=== PATIENT | female | born 1980 | race Caucasian/White ===

== ENCOUNTER 2018-06-26 06:31 | Emergency (ER) | payer OTHER ==
[2018-06-26 06:47] VITALS: BP 115/74
[2018-06-26 07:05] LABS: BILIRUBIN,URINE NEGATIVE (NEGATIVE); GLUCOSE, URINE (UA) NEGATIVE (NEGATIVE); KETONES,URINE (UA) NEGATIVE (NEGATIVE); LEUKOCYTE ESTERASE, URINE NEGATIVE (NEGATIVE); NITRITE,URINE NEGATIVE (NEGATIVE); OCCULT BLOOD,URINE SMALL (NEGATIVE); PROTEIN,URINE NEGATIVE (NEGATIVE); UROBILINOGEN,URINE 0.2 (NORMAL) E.U./dL (NORMAL)
[2018-06-26 07:13] LABS: CLARITY,URINE CLEAR (CLEAR); HCG UR QUAL NEGATIVE
[2018-06-26 07:24] LABS: BACTERIA,URINE Rare /HPF (None Seen); RBC,URINE 0-5 /HPF (0-5); SQUAMOUS EPITHELIAL CELL,UR FEW Squamous (<= Few)
[2018-06-26] MEDS ORDERED: LIDOCAINE VISCOUS 2% 15 ML UDC MM STA (07:26)
--- NOTE | 2018-06-26 07:41 | ED Physician Documentation ---
History of Present Illness - Stated complaint Stated Complaint: FEM - Chief complaint Chief Complaint: General - Additonal information Additional information: hx from pt 37 female to ED with abut 5 days of intense vaginal burning and discomfot no vag dc + bleeding on menses but sx started prior freq urination but not dysuria no abd pain no fever saw PMD, had a reportedly neg UA, unknown if GC chlamydia sent as well, rx bactrim X 3 days, no pelvic exam sx persist Review of Systems Constitutional: denies: Fever Cardiac: denies: Chest pain / pressure Respiratory: denies: Dyspnea GI: denies: Abdominal Pain : reports: LMP (now). denies: Discharge Endocrine: denies: Easy bruising / bleeding Immunocompromised: denies: Immunocompromised PD PAST MEDICAL HISTORY - Present Medications Home Medications: Ambulatory Orders Medication Instructions Recorded Confirmed Loratadine [Claritin] 10 mg PO 06/26/18 metroNIDAZOLE VAGINAL GEL 1 applic VG BID 5 Days #1 tube 06/26/18 [Metrogel] - Allergies Allergies/Adverse Reactions: Allergies Allergy/AdvReac Type Severity Reaction Status Date / Time Penicillins AdvReac Unknown Verified 06/26/18 06:47 PD ED PE NORMAL - Vitals Vital signs reviewed: Yes - General General: Alert and oriented X 3 - Cardiac Cardiac: RRR - Respiratory Respiratory: No respiratory distress - Abdomen Abdomen: Soft, Non tender - Female Female : 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 (Jasmyn), Other (no external lesions to suggest HSV, mild erythema, no sattelite lesions, no dc, no CMT, small blood c/w menses, no FB seen or palpated, cultures CAMERON wet prep swabs taken, applied topical lido for sx control) Results - Vitals Vitals: Vital Signs - 24 hr 06/26/18 06:41 Temperature 36.5 C Heart Rate 86 Respiratory 16 Rate Blood Pressure 115/74 O2 Saturation 99 Oxygen O2 Source Room air - Labs Labs: Microbiology 06/26/18 07:40 CAMERON Preparation - Final Other - Vaginal 06/26/18 07:40 Wet Prep - Final Genital - Vaginal Laboratory Tests 06/26/18 06/26/18 06:54 06:55 POC Whole Bld Glucose 91 Urine Color YELLOW Urine Clarity CLEAR Urine pH 6.0 Ur Specific [place] 1.010 Urine Protein NEGATIVE Urine Glucose (UA) NEGATIVE Urine Ketones NEGATIVE Urine Occult Blood SMALL H Urine Nitrite NEGATIVE Urine Bilirubin NEGATIVE Urine Urobilinogen 0.2 (NORMAL) Ur Leukocyte Esterase NEGATIVE Urine RBC 0-5 Urine WBC 0-3 Ur Squamous Epith Cells FEW Squamous Urine Bacteria Rare Ur Microscopic Review INDICATED Urine Culture Comments NOT INDICATED Urine HCG, Qual NEGATIVE PD MEDICAL DECISION MAKING - ED course ED course: + clue cells, < 20% but pt with sx will tx with metro gel Departure - Departure Disposition: 01 Home, Self Care Clinical Impression: Vaginitis Qualifiers: Chronicity: acute Qualified Code(s): N76.0 - Acute vaginitis Condition: Good Instructions: ED Vaginosis Bacterial Follow-Up: ZAHRAA LARKIN [Primary Care Provider] - Prescriptions: metroNIDAZOLE VAGINAL GEL [Metrogel] 1 applic VG BID 5 Days #1 tube Comments: The exam does not suggest herpes The test for a yeast infection was negative. The test for trichomonas was negative. The test for bacterial vagnosis was weakly positive - so I have prescribed medication for you. The other cultures are still pending and will take three days to be resulted
== END 2018-06-26 08:35 | disposition home or self-care (01) ==
LOC: ED 06:31
DX: N76.0 Acute vaginitis (principal)
CPT/HCPCS: 81001; 81003; 81025; 87086; 87210; 87220; 87491; 87591; 99283

== ENCOUNTER 2018-10-10 18:38 | Outpatient (CLI) | payer BC ==
--- NOTE | 2018-10-11 05:00 | XRAY Report ---
Reason: C SPINE PAIN Procedure Date: 10/10/2018 Accession Number: [id number] / [id number] Procedure: XR - Cervical Spine 2 View CPT Code: FULL RESULT: EXAM: CERVICAL SPINE RADIOGRAPHY EXAM DATE: 10/10/2018 06:49 PM. CLINICAL HISTORY: C SPINE PAIN. COMPARISONS: None. TECHNIQUE: 3 views. FINDINGS: Alignment: Reversal of lordosis. Bones: The cervical vertebral bodies and posterior elements are visualized from the skull base through C7-T1. No fractures or bone lesions. Disks: Disk heights are maintained. Facets: Facet joints are intact. Soft Tissues: Normal. No prevertebral soft tissue swelling. The visualized lung apices are clear. IMPRESSION: 1. Reversal of lordosis. 2. No other significant abnormality seen. RADIA
== END 2018-10-10 18:39 | disposition home or self-care (01) ==
LOC: DI 18:38
PROVIDERS: ATTEND Specialist
DX: M54.2 Cervicalgia (principal)
CPT/HCPCS: 72040

== ENCOUNTER 2023-12-04 09:26 | Emergency (ER) | payer BC ==
[2023-12-04] MEDS: SODIUM CHLORIDE 0.9% 1,000 ML IV STA (10:33)
[2023-12-04] MEDS: LORazepam 2 MG/ML VIAL IVP STA (10:33)
[2023-12-04 10:39] LABS: BASOPHILS % (AUTO) 0.4 %; EOSINOPHILS % (AUTO) 0.4 %; HCT - HEMATOCRIT 41.4 % (37.0-47.0); HGB - HEMOGLOBIN 14.1 g/dL (12.0-16.0); LYMPHOCYTES # (AUTO) 1.2 10^3/uL (1.5-3.5); LYMPHOCYTES % (AUTO) 23.5 %; MEAN CORPUSCULAR HEMOGLOBIN 28.7 pg (27.0-31.0); MEAN CORPUSCULAR HGB CONC 34.1 g/dL (32.0-36.0); MEAN CORPUSCULAR VOLUME 84.3 fL (81.0-99.0); MEAN PLATELET VOLUME 9.1 fL (7.9-10.8); MONOCYTES # (AUTO) 0.4 10^3/uL (0.0-1.0); NEUTROPHILS # (AUTO) 3.4 10^3/uL (1.5-6.6); NEUTROPHILS % (AUTO) 68.5 %; PLT - PLATELET COUNT 254 10^3/uL (130-450); RED BLOOD COUNT 4.91 10^6/uL (4.20-5.40); RED CELL DISTRIBUTION WIDTH 12.1 % (12.0-15.0)
[2023-12-04 10:46] VITALS: O2SAT 100
[2023-12-04 10:46] LABS: BILIRUBIN,URINE NEGATIVE (NEGATIVE); GLUCOSE, URINE (UA) NEGATIVE (NEGATIVE); KETONES,URINE (UA) 40 mg/dL (NEGATIVE); LEUKOCYTE ESTERASE, URINE NEGATIVE (NEGATIVE); NITRITE,URINE NEGATIVE (NEGATIVE); OCCULT BLOOD,URINE NEGATIVE (NEGATIVE); PH,URINE 6.5 PH (5.0-7.5); PROTEIN,URINE NEGATIVE (NEGATIVE); UROBILINOGEN,URINE 0.2 (NORMAL) E.U./dL (NORMAL)
[2023-12-04 10:48] LABS: CLARITY,URINE CLEAR (CLEAR); HCG UR QUAL NEGATIVE
[2023-12-04 11:00] LABS: ALBUMIN/GLOBULIN RATIO 2.2 (1.0-2.2); BILIRUBIN,TOTAL 0.7 mg/dL (0.2-1.0); CREATININE 0.7 mg/dL (0.6-1.3); POTASSIUM 3.5 mmol/L (3.5-4.5); TOTAL PROTEIN 7.3 g/dL (6.4-8.9)
--- NOTE | 2023-12-04 11:14 | ED Physician Documentation ---
History of Present Illness - Stated complaint Stated Complaint: HIGH BP,ANXIETY - Chief complaint Chief Complaint: General - History obtained from History obtained from: Patient - Additonal information Additional information: 43-year-old female presents for general feeling of unwell, elevated blood pressure. Patient reports very bad anxiety and has recently started on low-dose Prozac. She states that for the last several weeks she has felt generalized abdominal pain with nausea, worsening anxiety. Today patient felt worse and never and took her blood pressure. She states that her blood pressure was elevated at work and so she decided to present for evaluation to make sure that everything was okay. Review of Systems Constitutional: denies: Fever, Chills Cardiac: denies: Chest pain / pressure, Palpitations Respiratory: denies: Dyspnea, Cough, Wheezing GI: reports: Abdominal Pain, Nausea. denies: Vomiting, Constipation, Diarrhea : denies: Dysuria, Frequency, Hesitancy Musculoskeletal: denies: Neck pain, Back pain, Extremity pain Psychiatric: reports: Anxiety. denies: Depressed, Suicidal, Hallucinations, Delusions PD PAST MEDICAL HISTORY - Past Medical History Past Medical History: Yes Psych: Anxiety - Past Surgical History Past Surgical History: Yes General: Appendectomy - Present Medications Home Medications: Ambulatory Orders Medication Instructions Recorded Confirmed ALPRAZolam [Alprazolam] 0.5 mg PO Q6HR PRN 12/04/23 12/04/23 PARoxetine [Paxil] 10 mg PO DAILY 12/04/23 12/04/23 - Allergies Allergies/Adverse Reactions: Allergies Allergy/AdvReac Type Severity Reaction Status Date / Time acetaminophen [From Vicodin] AdvReac Emesis Verified 12/04/23 09:37 hydrocodone [From Vicodin] AdvReac Emesis Verified 12/04/23 09:37 oxycodone [From Percocet] AdvReac Emesis Verified 12/04/23 09:38 Penicillins AdvReac Unknown Verified 06/26/18 06:47 - Social History Does the pt smoke?: No Smoking Status: Never smoker Does the pt drink ETOH?: No Does the pt have substance abuse?: No - Immunizations Immunizations are current?: Yes - POLST Patient has POLST: No PD ED PE NORMAL - Vitals Vital signs reviewed: Yes - General General: Alert and oriented X 3, Well developed/nourished - Cardiac Cardiac: RRR, Strong equal pulses - Respiratory Respiratory: No respiratory distress, Clear bilaterally - Abdomen Abdomen: Soft, Non tender, Non distended, No organomegaly - Derm Derm: Normal color, Warm and dry, No rash - Extremities Extremities: No deformity, No tenderness to palpate, Normal ROM s pain, No edema - Neuro Neuro: Alert and oriented X 3, 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, No motor deficit, Normal speech - Psych Psych: Other (Anxious mood, congruent affect) Results - Vitals Vitals: Oxygen O2 Source Room air - Labs Labs: Laboratory Tests 12/04/23 12/04/23 12/04/23 10:25 10:25 10:30 WBC 5.0 RBC 4.91 Hgb 14.1 Hct 41.4 MCV 84.3 MCH 28.7 MCHC 34.1 RDW 12.1 Plt Count 254 MPV 9.1 Neut # (Auto) 3.4 Lymph # (Auto) 1.2 L [place] # (Auto) 0.4 Eos # (Auto) 0.0 Baso # (Auto) 0.0 Absolute Nucleated RBC 0.00 Nucleated RBC % 0.0 Sodium 139 Potassium 3.5 Chloride 105 Carbon Dioxide 25 Anion Gap 9.0 BUN 9 Creatinine 0.7 Estimated GFR (MDRD) 92 Glucose 97 Calcium 10.0 Total Bilirubin 0.7 AST 12 ALT 12 Alkaline Phosphatase 53 Total Protein 7.3 Albumin 5.0 Globulin 2.3 Albumin/Globulin Ratio 2.2 Lipase 36 Urine Color YELLOW Urine Clarity CLEAR Urine pH 6.5 Ur Specific [place] 1.010 Urine Protein NEGATIVE Urine Glucose (UA) NEGATIVE Urine Ketones 40 H Urine Occult Blood NEGATIVE Urine Nitrite NEGATIVE Urine Bilirubin NEGATIVE Urine Urobilinogen 0.2 (NORMAL) Ur Leukocyte Esterase NEGATIVE Ur Microscopic Review NOT INDICATED Urine Culture Comments NOT INDICATED Urine HCG, Qual NEGATIVE PD Medical Decision Making - ED course Complexity details: reviewed results, re-evaluated patient, considered differential, d/w patient ED course: Well-appearing patient with several symptoms as well as progressive anxiety over the last several weeks. Patient states that her elevated blood pressure today caused her to seek evaluation in the emergency department. Triage blood pressure is slightly elevated, however by the time of arrival to ED bed patient's blood pressure normalized without any interventions. Abdomen soft, absolutely no tenderness to light or deep palpation, no indication for advanced imaging at this time based on exam. Laboratory work is reviewed, unremarkable. Electrolytes within normal limits, no evidence of infection or severe derangement. Insetting of normal labs and benign abdominal exam I do not believe that a CT is indicated at this time. Patient was counseled on laboratory work findings, reassured on normalization of blood pressure. Patient counseled to continue to work with her primary care doctor about finding a good regimen for her anxiety. Patient states that she does follow-up with therapy. She is counseled to continue to use therapy as an effective additional tool for anxiety. Departure - Departure Disposition: 01 Home, Self Care Clinical Impression: Anxiety Condition: Stable Instructions: ED Stress React Comments: Your laboratory work today was normal. I recommend continued follow-up with your primary doctor for your anxiety. Continue all of your previous medications as prescribed. Forms: PCP List Discharge Date/Time: 12/04/23 11:41
[2023-12-04 11:47] VITALS: BP 165/78
== END 2023-12-04 11:41 | disposition home or self-care (01) ==
LOC: ED 09:26
DX: F41.9 Anxiety disorder, unspecified (principal); Z79.899 Other long term (current) drug therapy
CPT/HCPCS: 36415; 80053; 81003; 81025; 83690; 85025; 93005; 96374; 99283; 99284; J2060; 81001; 87086